=== PATIENT | male | born 1955 | race Caucasian/White ===

== ENCOUNTER → 2020-08-04 | Outpatient (CLI) | payer MEDICARE, OTHER ==
[~2020-08-04] MED LIST: ADMELOG SO100 UNIT/1 SQ; ALBUTEROL1.25 MG/3 INH; BASAGLAR K100 UNIT/1 SC; ECOTRIN81 MG PO; FENOFIBRATE160 MG PO; FISH OIL CONC1000 MG PO; GABAPENTIN800 MG PO; GLUCOCOM LANCE1 EAC1 MC; GLUCOTROL XL 22.5 MG PO; IMDUR ER TAB 3030 MG PO; LIPITOR TAB 2020 MG PO; LISINOPRIL2.5 MG PO; LOPRESSOR 25 MG25 MG PO; NORCO 5-325 TA1 EACH PO; NORVASC10 MG PO; OMNICEF 300 MG300 MG PO; PRAVACHOL80 MG PO; PROTONIX40 MG PO; SYNTHROID25 MCG PO; VENTOLIN HFA 66.7 GM INH; VITAMIN D250000 UNIT PO; VOLTAREN100 GM TP
== END ==
LOC: CT 15:23
DX: R31.0 Gross hematuria (principal)
CPT/HCPCS: Q9963; Q9967

== ENCOUNTER 2021-02-28 09:50 | Inpatient (IN) | payer MEDICARE, OTHER ==
[~2021-02-28] VITALS: Ht 172.7 cm; Wt 87.1 kg
[~2021-02-28 09:50] MED LIST changes: -PROTONIX40 MG PO
[2021-02-28 10:27] LABS: HEMOGLOBIN 11.6 gm/dl (14.0-17.5); RED BLOOD COUNT 5.36 M/UL (4.20-5.50); WHITE BLOOD COUNT 6.7 K/UL (4.5-11.0)
[2021-02-28 10:58] LABS: BUN/CREATININE RATIO 19 (0-10)
[2021-02-28] MEDS ORDERED: ATORVASTATIN CA40 MG PO (12:18)
[2021-02-28] MEDS ORDERED: ALPRAZOLAM1 MG PO (12:21)
[2021-02-28] MEDS ORDERED: PERCOCET 5-3251 EACH PO (12:22)
[2021-02-28] MEDS ORDERED: DULOXETINE HCL20 MG PO (12:22)
[2021-02-28] MEDS ORDERED: VITAMIN C500 M4 PO (12:23)
[2021-02-28] MEDS ORDERED: VITAMIN D325 MCG PO (12:23)
[2021-02-28] MEDS ORDERED: GALZIN25 MG PO (12:24)
[2021-02-28] MEDS ORDERED: PROTONIX40 MG PO (19:09)
[2021-03-01 03:04] LABS: HEMOGLOBIN 11.6 gm/dl (14.0-17.5); RED BLOOD COUNT 5.4 M/UL (4.20-5.50)
[2021-03-01 03:05] LABS: WHITE BLOOD COUNT 4.8 K/UL (4.5-11.0)
[2021-03-01 03:22] LABS: BUN/CREATININE RATIO 17 (0-10)
[2021-03-02 02:37] LABS: HEMOGLOBIN 10.9 gm/dl (14.0-17.5); RED BLOOD COUNT 5.03 M/UL (4.20-5.50)
[2021-03-02 02:55] LABS: WHITE BLOOD COUNT 11.5 K/UL (4.5-11.0)
[2021-03-02 03:42] LABS: BUN/CREATININE RATIO 21 (0-10)
[2021-03-03 02:37] LABS: HEMOGLOBIN 11.1 gm/dl (14.0-17.5); RED BLOOD COUNT 5.14 M/UL (4.20-5.50); WHITE BLOOD COUNT 11.5 K/UL (4.5-11.0)
[2021-03-03 02:56] LABS: BUN/CREATININE RATIO 29 (0-10)
[2021-03-04 09:40] LABS: HEMOGLOBIN 11.6 gm/dl (14.0-17.5); RED BLOOD COUNT 5.38 M/UL (4.20-5.50); WHITE BLOOD COUNT 10.8 K/UL (4.5-11.0)
[2021-03-04 10:30] LABS: BUN/CREATININE RATIO 37 (0-10)
[2021-03-05 03:32] LABS: HEMOGLOBIN 11.6 gm/dl (14.0-17.5); RED BLOOD COUNT 5.42 M/UL (4.20-5.50)
[2021-03-05 03:53] LABS: BUN/CREATININE RATIO 33 (0-10)
[2021-03-06 09:27] LABS: HEMOGLOBIN 11.1 gm/dl (14.0-17.5); RED BLOOD COUNT 5.29 M/UL (4.20-5.50); WHITE BLOOD COUNT 8.6 K/UL (4.5-11.0)
[2021-03-06 10:03] LABS: BUN/CREATININE RATIO 37 (0-10)
[2021-03-07 08:52] LABS: HEMOGLOBIN 11.8 gm/dl (14.0-17.5); RED BLOOD COUNT 5.54 M/UL (4.20-5.50); WHITE BLOOD COUNT 10.5 K/UL (4.5-11.0)
[2021-03-07 09:20] LABS: BUN/CREATININE RATIO 32 (0-10)
[2021-03-07] MEDS ORDERED: AUGMENTIN 875-1 EACH PO (19:04)
[2021-03-07] MEDS ORDERED: AMLODIPINE BESYL5 MG PO (19:04)
[2021-03-07] MEDS ORDERED: IPRAT-ALBUT 0.5-3 ML NEB (19:04)
[2021-03-07] MEDS ORDERED: BUDESONIDE0.5 MG/2 M NEB (19:04)
[2021-03-07] MEDS ORDERED: ZINC SULFATE50 MG PO (19:04)
== END 2021-03-07 19:11 | disposition home or self-care (01) | DRG 177 ==
LOC: ER1 09:50 → CDU 11:31 → PROG CARE 11:31
PROVIDERS: Physician Assistant; ADMIT Internal Medicine
PROC: 5A09457 Assistance with Respiratory Ventilation, 24-96 Consecutive Hours, Continuous Positive Airway Pressure (ICD-10-PCS; principal; 2021-03-03)
DX: J69.0 Pneumonitis due to inhalation of food and vomit (principal); J96.22 Acute and chronic respiratory failure with hypercapnia; J98.11 Atelectasis; J44.0 Chronic obstructive pulmonary disease with (acute) lower respiratory infection; J44.1 Chronic obstructive pulmonary disease with (acute) exacerbation; E87.2 Acidosis; Z20.822 Contact with and (suspected) exposure to COVID-19; F17.210 Nicotine dependence, cigarettes, uncomplicated; D64.9 Anemia, unspecified; K21.9 Gastro-esophageal reflux disease without esophagitis; E55.9 Vitamin D deficiency, unspecified; E78.5 Hyperlipidemia, unspecified; E11.65 Type 2 diabetes mellitus with hyperglycemia; E03.9 Hypothyroidism, unspecified; F41.9 Anxiety disorder, unspecified; E11.9 Type 2 diabetes mellitus without complications; Z79.01 Long term (current) use of anticoagulants; Z79.82 Long term (current) use of aspirin; Z88.6 Allergy status to analgesic agent; Z79.4 Long term (current) use of insulin; Z91.14 Patient's other noncompliance with medication regimen
CPT/HCPCS: 36415; 36600; 71045; 71046; 73562; 80048; 80053; 82550; 82553; 82803; 82962; 83036; 83735; 83874; 84100; 84484; 85025; 85379; 87070; 87205; 93005; 93970; 94640; 94660; 94664; 94760; 96374; 99285; J0360; J0456; J0696; J2920; J2930; J7030; U0002

== ENCOUNTER → 2021-12-06 | Outpatient (CLI) | payer MEDICARE, OTHER ==
[~2021-12-06] MED LIST changes: +ALPRAZOLAM1 MG PO; +AMLODIPINE BESYL5 MG PO; +ATORVASTATIN CA40 MG PO; +AUGMENTIN 875-1 EACH PO; +BUDESONIDE0.5 MG/2 M NEB; +DULOXETINE HCL20 MG PO; +GALZIN25 MG PO; +IPRAT-ALBUT 0.5-3 ML NEB; +PERCOCET 5-3251 EACH PO; +PROTONIX40 MG PO; +VITAMIN C500 M4 PO; +VITAMIN D325 MCG PO; +ZINC SULFATE50 MG PO
[2021-12-06 09:43] LABS: HEMOGLOBIN 10.3 gm/dl (14.0-17.5); RED BLOOD COUNT 4.71 M/UL (4.20-5.50); WHITE BLOOD COUNT 6.1 K/UL (4.5-11.0)
[2021-12-06 10:09] LABS: BUN/CREATININE RATIO 16 (0-10)
[2021-12-07 10:16] LABS: CREATININE, URINE 166.8 mg/dL (Not Estab.)
[2021-12-08 11:16] LABS: CHOLESTEROL, TOTAL 130 mg/dL (100-199); HDL SIZE 8.7 nm (>=9.2); HDL-C 33 mg/dL (>39); HDL-P (TOTAL) 21.4 umol/L (>=30.5); LARGE HDL-P 2.1 umol/L (>=4.8); LARGE VLDL-P 3.1 nmol/L (<=2.7); LDL SIZE 21.1 nm (>20.5); LDL SIZE 21.1 nm (>=20.8); LDL-C 75 mg/dL (0-99); LDL-P 966 nmol/L (<1000); LP-IR SCORE 60 (<=45); SMALL LDL-P 457 nmol/L (<=527); TRIGLYCERIDES 124 mg/dL (0-149); VLDL SIZE 44.8 nm (<=46.6)
== END ==
LOC: LAB 08:55
PROVIDERS: Emergency Medicine
DX: Z12.5 Encounter for screening for malignant neoplasm of prostate (principal); E11.9 Type 2 diabetes mellitus without complications; I10 Essential (primary) hypertension; E78.2 Mixed hyperlipidemia; E03.8 Other specified hypothyroidism
CPT/HCPCS: 36415; 80053; 80061; 82043; 82570; 83036; 83704; 84443; 84550; 85025; G0103

== ENCOUNTER → 2021-12-23 | Outpatient (CLI) | payer MEDICARE, OTHER | LOC: CT 13:29 | DX: I71.4 Abdominal aortic aneurysm, without rupture (principal); F17.218 Nicotine dependence, cigarettes, with other nicotine-induced disorders | CPT/HCPCS: 74175; Q9967 ==

== ENCOUNTER → 2022-01-02 | Outpatient (CLI) | payer MEDICARE, OTHER | LOC: KOH-I 10:53 | DX: M51.16 Intervertebral disc disorders with radiculopathy, lumbar region (principal); M47.26 Other spondylosis with radiculopathy, lumbar region | CPT/HCPCS: 72100 ==